=== PATIENT | male | born 1965 | race Caucasian/White ===

== ENCOUNTER → 2019-07-26 | Outpatient (CLI) | payer OTHER ==
--- NOTE | 2019-07-29 22:07 | SLE ---
[facility] [place] [address] POLYSOMNOGRAPHY STUDY Name: JUS DICKENS Room #: REG [facility]#: [id number] Admission: 07/26/19 Attend Phys: Jose Ramon Doherty MD Discharge: Date of : 69 Report #: [id number] THIS REPORT FOR: //name// CC: Jose Ramon Moon MD DATE OF SERVICE: 07/26/2019 SLEEP STUDY REFERRING PHYSICIAN: Jeferson Moon M.D. The patient is a 53-year-old who weighs 265 pounds with a BMI of 41.5. The patient has a history of severe sleep apnea diagnosed previously with an AHI of 74 per hour. The patient has been on auto CPAP. The patient has difficulty in tolerating CPAP pressure. The download data recently had shown a higher AHI on current CPAP pressure. As a result, he was referred for BiPAP titration study. During the night study, the patient spent 388 minutes in bed and slept for about 303 minutes with a sleep efficiency of 78%. Sleep latency was 12.9 minutes with a REM latency of 56 minutes. Sleep architecture showed increased stage 1 sleep, normal stage 2 sleep, absent slow wave and increased REM sleep, which was 30% of total sleep time. EKG monitoring revealed an average heart rate of 59 beats per minute. No sustained arrhythmias observed. PLMS were seen at an index of 8 per hour and 1 per hour caused EEG arousals. The patient was started on BiPAP at a pressure of 9/5 and titrated up to 18/9. There was overall an improvement in patient's AHI while on BiPAP; however, at the final pressure, limited sleep was observed. The patient slept for 7 minutes at a BiPAP pressure of 18/9. The patient had 6.5 minutes of lateral REM sleep. The patient's AHI was reduced to 8.6 per hour. Oxygen saturation remained above 88%. I would recommend the patient should be placed on a BiPAP pressure of 20/11 and follow the download data. IMPRESSION: 1. Severe sleep apnea diagnosed by previous sleep study. 2. No clinically significant periodic limb movements. RECOMMENDATIONS: 1. The patient should be placed on BiPAP at a setting of 20/11. I would recommend review of the download data in 30 days and make necessary adjustment [address] [address] POLYSOMNOGRAPHY STUDY Name: JUS DICKENS Room #: REG [facility] Darleen#: [id number] Admission: 07/26/19 Attend Phys: Jose Ramon Doherty MD Discharge: Date of : 69 Report #: [id number] if the AHI is still more than 5 per hour. 2. Weight loss is strongly advised. 3. Avoid [employer] depressants. 4. Cautioned regarding driving until symptoms of sleep apnea resolve with the use of BiPAP. <ELECTRONICALLY SIGNED> By: Jose Ramon Doherty MD 07/29/19 [id number] Jose Ramon Doherty MD /demetria
== END ==
LOC: SLEEPLAB 00:54
DX: G47.30 Sleep apnea, unspecified (principal)